=== PATIENT | male | born 1995 | race Two or more races ===

== ENCOUNTER → 2018-07-13 | Outpatient (CLI) | payer OTHER | END | disposition home or self-care (01) | LOC: SONOGRAMA 13:26 | DX: I86.1 Scrotal varices (principal); K40.20 Bilateral inguinal hernia, without obstruction or gangrene, not specified as recurrent ==

== ENCOUNTER 2019-01-11 06:00 | Day surgery (SDC) | payer OTHER ==
[2019-01-11] MEDS ORDERED: POLY119PG PO (16:09)
[2019-01-11] MEDS ORDERED: PERCOCET 5-3251 EACH PO (16:09)
[2019-01-11] MEDS ORDERED: SURFAK240 M1 PO (16:10)
[2019-01-11] MEDS ORDERED: IBU600 MG PO (16:10)
== END 2019-01-11 19:20 | disposition home or self-care (01) ==
LOC: CIR.AMB 06:00
DX: K42.9 Umbilical hernia without obstruction or gangrene (principal); K43.2 Incisional hernia without obstruction or gangrene